=== PATIENT | female | born 1995 ===

== ENCOUNTER 2017-02-15 07:03 | Emergency (ER) | payer BC ==
[2017-02-15 07:16] VITALS: BP 133/81
--- NOTE | 2017-02-15 07:16 | UC ---
Throat Pain/Nasal Joe HPI - HPI Summary HPI Summary: PT presents with sore throat x 3 days. PT lives in [facility] and 3 sisters with + strep. Pt denies fevers, chills. No sinus congestion, PND. No ear pain. No analgesia taken. Pt with h/o recurrent strep - last > 1 year. No rash. No cough. LMP current Pt's medications reviewed this visit - History of Current Complaint Stated Complaint: SORE THROAT, ACHE Time Seen by Provider: 02/15/17 07:12 Hx Obtained From: Patient Onset/Duration: Gradual Onset Severity: Moderate Pain Intensity: 6 Associated Signs & Symptoms: Positive: Negative - Allergies/Home Medications Allergies/Adverse Reactions: Allergies Allergy/AdvReac Type Severity Reaction Status Date / Time Minocycline Allergy Hives Verified 02/15/17 07:25 Home Medications: Home Medications Dexmethylphenidate HCl [Focalin] 10 mg PO DAILY 02/15/17 [History Confirmed 08/27] FLUoxetine CAP* [Prozac CAP*] 20 mg PO DAILY 02/15/17 [History Confirmed ] PMH/Surg Hx/FS Hx/Imm Hx Previously Healthy: Yes - Surgical History Surgical History: Yes Surgery Procedure, Year, and Place: T+A - Family History Known Family History: Positive: Hypertension - Social History Occupation: Student Lives: Dormitory/Roommates Alcohol Use: None Substance Use Type: None Review of Systems Constitutional: Negative Skin: Negative ENT: Sore Throat All Other Systems Reviewed And Are Negative: Yes Physical Exam Triage Information Reviewed: Yes Appearance: Well-Appearing, No Pain Distress, Well-Nourished Vital Signs Reviewed: Yes Eye Exam: Normal Eyes: Positive: Conjunctiva Clear ENT Exam: Normal ENT: Positive: Normal ENT inspection, Hearing grossly normal, Pharyngeal erythema, Nasal congestion, TMs normal, Uvula midline. Negative: Sinus tenderness Dental Exam: Normal Neck exam: Normal Neck: Positive: Supple, Nontender, No Lymphadenopathy Respiratory Exam: Normal Respiratory: Positive: Chest non-tender, Lungs clear, Normal breath sounds, No respiratory distress, No accessory muscle use Cardiovascular Exam: Normal Cardiovascular: Positive: RRR, No Murmur, Pulses Normal Abdominal Exam: Normal Abdomen Description: Positive: Nontender, No Organomegaly, Soft Bowel Sounds: Positive: Present Musculoskeletal Exam: Normal Neurological Exam: Normal Neurological: Positive: Alert Psychological Exam: Normal Psychological: Positive: Normal Response To Family Skin Exam: Normal Throat Pain/Nasal Course/Dx - Course Assessment/Plan: Pt with sore throat x 3 days + strep exoposure no fever, rash , sinus congestion, no analgesia. PT with erythema on exam. Will check rapid strep. apap. secretion. motrin/apap - Differential Dx/Diagnosis Provider Diagnoses: strep pharyngitis Discharge - Discharge Plan Condition: Stable Disposition: HOME Additional Instructions: - Stay well hydrated. Drink plenty of non-alcoholic, non-caffinated beverages. - Gargle with warm, salt water 2-3 times a day - Cold beverages may be soothing to your throat - popsicles, apple sauce, jello -These infections are spread by secretions - do NOT share eating or drinking utensils - clean items you share with other people such as cell phones, computer mouse, TV remote, computer tablets, etc. AFter you have been on antibiotics for 2 days, change your toothbrush and your pillowcase. - Alternate ibuprofen (Advil, Motrin) 600mg and Tylenol every 3 hours for pain or fever. Take with food. Do NOT take for more than 4-5 days. - Call your doctor to schedule a follow-up appointment. Call your doctor or return with questions or concerns
[2017-02-15] MEDS ORDERED: Acetaminophen TAB* 325 MG PO ONE (07:25)
[2017-02-15] MEDS ORDERED: Amoxicillin/Clavulanate TAB* 875 MG PO ONE (07:36)
== END 2017-02-15 07:45 | disposition home or self-care (01) ==
LOC: UCEAST 07:03
DX: J02.0 Streptococcal pharyngitis (principal)
CPT/HCPCS: 87651; 99202; A9270-GY; G0463